=== PATIENT | female | born 1935 | race Caucasian/White ===

== ENCOUNTER → 2016-08-12 | Outpatient (CLI) | payer OTHER ==
[~2016-08-12] MED LIST: ADVIL200 M1 PO; ASPIRIN81 M1 PO; CALCIUM 600 +1 EAC3 PO; LIPITOR40 MG PO; MULTIVITAMIN1 UDCAP PO; PACERONE PO; SYNTHROID0.1 MG PO; TENORMIN50 MG PO; TOPROL XL100 MG PO
--- NOTE | ~2016-08-12 | MY11 ---
[facility] A Service of [facility] RADIOLOGY TEXT RESULTS PATIENT: TASHIA SAHA LOCATION: [facility] : 31 UNIT #: [id number] AGE: [address]: ERIC PATINO APRN SEX: F ORDER DR: [id number] [address] [address] [id number] O MR#: [id number] #: [id number] NAME: TASHIA SAHA : 1935 SEX: F STUDY DATE/TIME: 08/12/2016 9:55 UNIT: [facility] ROOM: STUDY DESCRIPTION: MY Mammogram Screening Dig Hussein Attending Physician: Eric Patino Aprn Referring Physician: Eric Patino Aprn Ordering Physician: Eric Patino Aprn Primary Care Physician: Eric Patino Aprn MEDICAL IMAGING REPORT This report is preliminary unless electronic signature is present. EXAM Bilateral digital screening mammogram with CAD, 08/12/2016 HISTORY 81-year-old female with no personal or family history of breast cancer or current complaints. Prior left breast excisional biopsy. COMPARISON Bilateral screening mammogram 08/08/2015, 07/25/2014, 07/16/2013. FINDINGS CC and MLO views were obtained of each breast utilizing digital technique and reviewed with an FDA-approved CAD device. Heterogeneously dense fibroglandular tissue is present bilaterally, greatest in the anterior two-thirds of each breast. Fibronodular density in the anterior left breast medial hemisphere on the CC view is unchanged, in keeping with benign finding. Benign appearing calcifications are present bilaterally. No suspicious cluster of microcalcifications or architectural distortion features. No abnormal skin thickening or nipple retraction is identified. IMPRESSION Routine bilateral screening mammogram is recommended in 1 year. Patients over the age of 40 are entered into a reminder system with target due date for the next mammogram. A result letter will also be sent to the patient. BIRADS: 2 Benign Finding Dictated by... [facility] A Service [facility] RADIOLOGY TEXT RESULTS PATIENT: TASHIA SAHA LOCATION: [facility] : 31 UNIT #: [id number] AGE: [address]: ERIC PATINO APRN SEX: F ORDER DR: Christal Walters M.D. THIS IS AN ELECTRONICALLY VERIFIED REPORT Christal Walters M.D. at 08/13/2016 7:11 AM Hai TD: 08/12/2016 11:30 JOB #: [id number] MEDICAL IMAGING REPORT Page 1 of 1
== END | disposition home or self-care (01) ==
LOC: SMAM 09:20
DX: Z12.31 Encounter for screening mammogram for malignant neoplasm of breast (principal); Z91.89 Other specified personal risk factors, not elsewhere classified
CPT/HCPCS: G0202